=== PATIENT | female | born 1940 | race Caucasian/White ===

== ENCOUNTER 2016-08-06 20:55 | Emergency (ER) | payer OTHER ==
[~2016-08-06] VITALS: Ht 160 cm; Wt 95.3 kg
[2016-08-06 21:57] LABS: HEMATOCRIT 42.3 % (36.0-46.0); MCH 28.9 PG (29.0-34.0); MCHC 32.2 G/DL (30.0-36.0); MEAN PLAT.VOLUME 10.3 uM^3 (9.5-12.4); PLATELET COUNT 216 K/uL (156-360); RBC DIS.WIDTH-SD 43.1 % (39-53); WHITE BLOOD COUNT 7.1 K/uL (4.1-10.2)
[2016-08-06 22:05] LABS: CHLORIDE 107 mEq/L (99-109); POTASSIUM 4.1 mEq/L (3.7-5.4); SODIUM 144 mEq/L (136-147)
[2016-08-06 22:07] LABS: GLUCOSE 127 mg/dL (70-99)
[2016-08-06 22:08] LABS: ANION GAP 9 MEQ/L (2-14); D-DIMER ELISA 0.44 mg/L FEU (< 0.57)
[2016-08-06 22:11] LABS: GFR ESTIMATE (CALCULATED) 58 mL/min/
[2016-08-06 22:12] LABS: UREA NITROGEN (BUN) 22 mg/dL (9-23)
[2016-08-06 22:18] LABS: TROP-I INTERPRETATION NEGATIVE; TROPONIN-I < 0.01 ng/mL (0.0-0.30)
[2016-08-06 22:58] LABS: ADD MIUA? YES; BILIRUBIN NEGATIVE; BLOOD NEGATIVE; COLOR YELLOW ((YELLOW)); GLUCOSE (STRIP) NEGATIVE; KETONES 5; LEUKOCYTES NEGATIVE; NITRITE NEGATIVE; PROTEIN (STRIP) NEGATIVE
[2016-08-06 23:03] LABS: BACTERIA RARE /HPF; EPITHELIAL CELLS RARE /HPF; HYALINE CASTS TNTC /LPF; MUCUS 4+ /LPF; RED BLOOD CELLS 0-5 /HPF (0-5); UCUL ADDED? NO; WHITE BLOOD CELLS 0-5 /HPF (0-5)
[2016-08-06 23:56] VITALS: BP 137/70
== END 2016-08-06 23:57 | disposition home or self-care (01) ==
LOC: EME 20:55
PROVIDERS: Emergency Medicine
DX: R10.84 Generalized abdominal pain (principal); R55 Syncope and collapse; R42 Dizziness and giddiness
CPT/HCPCS: 71010; 80048; 81003; 84484; 85027; 85379; 93005; 99281; 99285; J2405